=== PATIENT | female | born 1995 | race Caucasian/White ===

== ENCOUNTER 2018-05-08 11:07 | Day surgery (SDC) ==
[2018-05-08 12:14] LABS: #Basophils 0.1 thou/uL (0.0-0.2); #Lymphocytes 1.6 thou/uL (1.20-3.40); #Monocytes 0.6 thou/uL (0.11-0.59); #Neutrophils 7.1 thou/uL (1.40-6.50); %Basophils 0.8 % (0.0-1.0); %Eosinophils 0.4 % (0.0-10.0); %Lymphocytes 17.2 % (21.0-51.0); %Monocytes 6.8 % (0.0-10.0); %Neutrophils 74.8 % (42.0-75.0); Hemoglobin 11.9 g/dL (12.0-16.0); Mean Corpuscular HGB CONC 34.2 g/dL (32.0-36.0); Mean Corpuscular Hemoglobin 29.7 pg (27.0-31.0); Mean Corpuscular Volume 86.8 fL (78.0-98.0); Mean Platelet Volume 8.6 fL (7.4-10.4); Platelet Count 367 thou/uL (130-400); RBC Distribution Width 11.5 % (11.5-14.5); White Blood Cell (WBC) Count 9.5 thou/uL (4.8-10.8)
[2018-05-08 12:35] LABS: Creatinine, Urine 27.37 mg/dL (47-110); Protein, Urine Random Quant Less than 10 mg/dL (1-14)
[2018-05-08 13:30] VITALS: BP 134/92; TEMP 98.1; BMI 26.9
--- NOTE | 2018-05-08 14:23 | ULT ---
BIOPHYSICAL PROFILE: 05/08/2018 PROVIDED CLINICAL HISTORY: induced hypertension. FINDINGS: TONE: 2/2 BREATHIN/2 MOVEMENT: 2/2 AMNIOTIC FLUID: 2/2 TOTAL: 04/04 Single live intrauterine gestation documented in a vertex presentation with a heart rate of 132 beats per minute. Amniotic fluid index is calculated at 12.6. IMPRESSION: Normal biophysical profile. POS: [facility]
== END 2018-05-08 14:07 | disposition home health service (06) ==
LOC: L&D/OP 11:07
PROVIDERS: ATTEND Family Medicine
DX: O13.9 Gestational [pregnancy-induced] hypertension without significant proteinuria, unspecified trimester (principal)
CPT/HCPCS: 36415; 59025; 76819; 82570; 84156; 85025; 99284

== ENCOUNTER 2018-05-14 22:00 | Inpatient (IN) | payer OTHER ==
[~2018-05-14 22:00] MED LIST: Bupivacaine 0.25% HCL 30 ML VIAL ONE
[2018-05-14 23:30] VITALS: BMI 26.6
[2018-05-14] MEDS ORDERED: Methylergonovine 0.2 MG/ML VIAL IM PRN (23:31)
[2018-05-14] MEDS ORDERED: Diphenoxylate HCl/Atropine Tablet PO PRN (23:31)
[2018-05-14] MEDS ORDERED: Ibuprofen 800 MG TAB PO PRN (23:31)
[2018-05-14] MEDS ORDERED: HYDROcodone/Acetaminophen 5/325 mg Tablet PO PRN ×2 (23:31)
[2018-05-14] MEDS ORDERED: Misoprostol 200 MCG TAB PR PRN (23:31)
[2018-05-14] MEDS ORDERED: Butorphanol Tartrate 1 MG/ML VIAL SLOW IVP PRN (23:31)
[2018-05-14] MEDS ORDERED: Lidocaine 1% (PF) 30 ML VIAL SC PRN (23:31)
[2018-05-14] MEDS ORDERED: NS / Oxytocin 40 units/1000ml 1,000 ML IV PRN (23:31)
[2018-05-14] MEDS ORDERED: NS w/ Oxytocin 10 units 500 ML IV SCH ×2 (23:31)
[2018-05-14] MEDS ORDERED: Carboprost 250 MCG/ML AMP IM PRN (23:31)
[2018-05-14] MEDS ORDERED: Ondansetron HCl/PF 4 MG/2 ML Vial IVP PRN (23:31)
[2018-05-14] MEDS: Lactated Ringer's 1,000 ML IV SCH (23:45)
[2018-05-14 23:55] LABS: Hemoglobin 12.2 g/dL (12.0-16.0); Mean Corpuscular HGB CONC 35.6 g/dL (32.0-36.0); Mean Corpuscular Hemoglobin 30.6 pg (27.0-31.0); Mean Corpuscular Volume 86.1 fL (78.0-98.0); Platelet Count 388 thou/uL (130-400); RBC Distribution Width 11.6 % (11.5-14.5); Red Blood Cell (RBC) Count 3.98 mill/uL (4.20-5.40); White Blood Cell (WBC) Count 10.5 thou/uL (4.8-10.8)
[2018-05-15] MEDS: Misoprostol 100 MCG TAB VAG SCH ×2 (00:10→23:00)
[2018-05-15 00:34] LABS: Syphilis Antibody Nonreactive (Nonreactive); Syphilis Antibody Index 0.08 S/CO (<1.00 Non-Reactive)
[2018-05-15 00:40] LABS: HBSAg Index 0.14 S/CO (0-0.99); Hep B Surf Ag Non-Reactive S/CO (NonReactive)
[2018-05-15] MEDS: Lactated Ringer's 1,000 ML IV SCH ×2 (07:56→09:57)
[2018-05-15] MEDS ORDERED: Bupivacaine 0.5% 20 ML, fentaNYL Citrate/PF 400 MCG in Sodium Chloride 0.9% 72 ML EPIDURAL SCH (08:45)
[2018-05-15] MEDS ORDERED: DISCONTINUE ALL PREVIOUS NARCOTICS FS SCH (08:45)
[2018-05-15] MEDS ORDERED: ePHEDrine/0.9% NaCl/PF SYRINGE 50 mg/10 ml SLOW IVP PRN ×2 (09:52→10:43)
[2018-05-15] MEDS ORDERED: Acetaminophen 325 MG TAB PO PRN ×2 (09:52→10:43)
[2018-05-15] MEDS ORDERED: Ondansetron HCl/PF 4 MG/2 ML Vial IVP PRN ×3 (09:52→15:13)
[2018-05-15] MEDS ORDERED: Naloxone HCl 0.4 mg/ml Vial IVP PRN ×4 (09:52→10:43)
[2018-05-15] MEDS ORDERED: Lactated Ringer's 500 ML IV PRN ×2 (09:52→10:43)
[2018-05-15] MEDS ORDERED: Promethazine HCl 25 MG/ML VIAL IM PRN ×2 (09:52→10:43)
[2018-05-15] MEDS ORDERED: Eucerin (Mineral Oil/Petrolatum,White) 30 gm Jar TOP PRN ×2 (09:52→10:43)
[2018-05-15] MEDS ORDERED: diphenhydrAMINE 50 MG/ML VIAL IVP PRN ×2 (09:52→10:43)
[2018-05-15] MEDS ORDERED: Communication Order-Pharmacy FS SCH ×2 (10:00→10:45)
[2018-05-15] MEDS ORDERED: fentaNYL Citrate/PF 400 MCG, Bupivacaine 0.5% 20 ML in Sodium Chloride 0.9% 72 ML EPIDURAL SCH (10:00)
[2018-05-15] MEDS: NS / Oxytocin 40 units/1000ml 1,000 ML IV SCH ×2 (13:05→15:40)
[2018-05-15] MEDS ORDERED: Bisacodyl 10 MG SUPP PR PRN (15:13)
[2018-05-15] MEDS ORDERED: Lanolin Ointment 7 GM TUBE TOP PRN (15:13)
[2018-05-15] MEDS ORDERED: cloNIDine 0.1 MG TAB PO PRN (15:13)
[2018-05-15] MEDS ORDERED: diphenhydrAMINE 25 MG CAP PO PRN (15:13)
[2018-05-15] MEDS ORDERED: Preparation H Ointment 28 GM TUBE PR PRN (15:13)
[2018-05-15] MEDS ORDERED: Milk Of Magnesia 30 ML UDCUP PO PRN (15:13)
[2018-05-15] MEDS ORDERED: HYDROcodone/Acetaminophen 5/325 mg Tablet PO PRN (15:13)
[2018-05-15] MEDS ORDERED: Benzocaine/Menthol 20-0.5% 60 ML CAN TOP PRN (15:13)
[2018-05-15] MEDS: HYDROcodone/Acetaminophen 5/325 mg Tablet PO PRN ×2 (16:51→23:11)
[2018-05-15] MEDS: Ferrous Sulfate 325 MG TAB PO SCH (17:25)
[2018-05-15] MEDS: Ibuprofen 800 MG TAB PO SCH ×2 (17:26→20:28)
[2018-05-15] MEDS: Docusate Calcium (SURFAK) 240 MG CAP PO SCH (20:28)
[2018-05-16] MEDS: Ibuprofen 800 MG TAB PO SCH ×3 (05:41→21:22)
[2018-05-16 05:58] LABS: Hemoglobin 10.2 g/dL (12.0-16.0); Mean Corpuscular HGB CONC 33.3 g/dL (32.0-36.0); Mean Corpuscular Hemoglobin 29.4 pg (27.0-31.0); Mean Corpuscular Volume 88.4 fL (78.0-98.0); Mean Platelet Volume 8.7 fL (7.4-10.4); Platelet Count 266 thou/uL (130-400); RBC Distribution Width 11.8 % (11.5-14.5); Red Blood Cell (RBC) Count 3.48 mill/uL (4.20-5.40); White Blood Cell (WBC) Count 13.3 thou/uL (4.8-10.8)
[2018-05-16] MEDS: Prenatal Vitamin 1 TAB PO SCH (08:31)
[2018-05-16] MEDS: Docusate Calcium (SURFAK) 240 MG CAP PO SCH ×2 (08:32→21:22)
[2018-05-16] MEDS: Ferrous Sulfate 325 MG TAB PO SCH ×2 (08:32→16:09)
[2018-05-17] MEDS: Ibuprofen 800 MG TAB PO SCH (05:01)
[2018-05-17] MEDS: Ferrous Sulfate 325 MG TAB PO SCH (09:27)
[2018-05-17] MEDS: Docusate Calcium (SURFAK) 240 MG CAP PO SCH (09:29)
[2018-05-17] MEDS: Prenatal Vitamin 1 TAB PO SCH (09:29)
[2018-05-17 12:10] VITALS: BP 137/91; TEMP 99
== END 2018-05-17 12:30 | disposition home or self-care (01) | DRG 775 ==
LOC: L&D 22:49 → 3SW 05-15 15:52
PROVIDERS: ADMIT Family Medicine; ATTEND Family Medicine
PROC: 10E0XZZ Delivery of Products of Conception, External Approach (ICD-10-PCS; principal; 2018-05-14)
PROC: 0HQ9XZZ Repair Perineum Skin, External Approach (ICD-10-PCS; 2018-05-14)
DX: O13.3 Gestational [pregnancy-induced] hypertension without significant proteinuria, third trimester (principal); Z3A.38 38 weeks gestation of pregnancy; Z37.0 Single live birth; O70.0 First degree perineal laceration during delivery
CPT/HCPCS: 36415; 51702; 85027; 86780; 86850; 86900; 86901; 87340; J0595; J2001; J3010; J3490; J7050; S0020

== ENCOUNTER 2020-05-22 10:47 | Observation (INO) | payer OTHER ==
[2020-05-22 11:42] VITALS: BMI 28.1
[2020-05-22] MEDS ORDERED: Betamet Acet/Betamet Na Ph 30 MG/5 ML VIAL ONE (11:46)
[2020-05-22] MEDS ORDERED: Promethazine HCl 25 MG/ML VIAL IM PRN (12:12)
[2020-05-22] MEDS ORDERED: Acetaminophen 500 MG TAB PO PRN (12:12)
[2020-05-22] MEDS ORDERED: Docusate 100 MG CAP PO PRN (12:12)
[2020-05-22] MEDS ORDERED: Acetaminophen 500 MG TAB PO SCH (12:45)
[2020-05-22 12:58] LABS: Hemoglobin 11.8 g/dL (12.0-16.0); Mean Corpuscular HGB CONC 35.2 g/dL (32.0-36.0); Mean Corpuscular Volume 88.1 fL (78.0-98.0); Mean Platelet Volume 7.9 fL (7.4-10.4); Platelet Count 345 thou/uL (130-400); RBC Distribution Width 11.3 % (11.5-14.5); White Blood Cell (WBC) Count 9.3 thou/uL (4.8-10.8)
[2020-05-22 13:08] LABS: Creatinine, Urine 30.07 mg/dL (47-110); Protein, Urine Random Quant Less than 10 mg/dL (1-14)
[2020-05-22 13:23] LABS: ALT (SGPT) 41 U/L (8-55); AST (SGOT) 31 U/L (5-34); Albumin 3.3 g/dL (3.5-5.0); Alkaline Phosphatase 193 U/L (40-110); Anion Gap 12 mmol/L (10-20); BUN (Urea Nitrogen) 6 mg/dL (7.0-18.7); Bilirubin, Total 0.2 mg/dL (0.2-1.2); Calc. Creatinine Clearance 170 mL/min (70-130); Calcium 8.5 mg/dL (7.8-10.44); Carbon Dioxide 22 mmol/L (22-29); Chloride 105 mmol/L (98-107); Estimated GFR-MDRD Greater than 90; Globulin 3.8 g/dL (2.4-3.5); Glucose 105 mg/dL (70-105); Potassium 3.5 mmol/L (3.5-5.1); Protein, Total 7.1 g/dL (6.0-8.3); Sodium 135 mmol/L (136-145)
--- NOTE | 2020-05-22 14:03 | ULT ---
Exam: Nonstress biophysical profile HISTORY: Hypertension. 32 weeks gestation TECHNIQUE: Nonstress biophysical profile is performed lie: Vertex Placental location: Posterior Shadowing limits evaluation of the cervix as well as the presence or absence of previa heart tones: 143 bpm Amniotic fluid index 10.2 cm Nonstress biophysical profile: tone 2 breathing 2 movements 2 Fluid 2 Total score 8 out of 8 IMPRESSION: Nonstress biophysical score is 8 out of 8
[2020-05-22] MEDS ORDERED: Calcium Carbonate 500 MG ChewTAB PO PRN (22:29)
[2020-05-22] MEDS: Betamet Acet/Betamet Na Ph 30 MG/5 ML VIAL IM SCH (22:33)
--- NOTE | 2020-05-23 07:40 | PDOC.OBAPN ---
[facility] OB PN: Sub - Interval History Hospital Day: 2 Chief Complaint: none Indentification: # 32.5 WGA Interval History: Vitals WNLs since arrival to L&D. s/p betamethasone x1. R OB PN: Obj - Maternal Vital signs: BP: 108/65 Wt: 74 kg [facility] OB PN: Exam - Physical Exam General: NAD, awake, alert and oriented HEENT: normocephalic and atraumatic, grossly normal vision, grossly normal hearing Neck: supple, FROM Heart: RRR, normal S1/S2 General: CTAB, no respiratory distress Abdomen: gravid Musculoskeletal: normal gait and station, FROM in all four extremities Neurological: cranial nerves II through XII intact, sensation to pain,touch and proprioception grossly normal, no focal deficit Psychiatric: intact recent and remote memory, good judgement and insight, normal mood and affect [facility] OB PN: Data - Labs Lab results: Laboratory Results - last 24 hr 05/22/20 05/22/20 05/22/20 12:30 12:37 12:37 WBC 9.3 RBC 3.80 L Hgb 11.8 L Hct 33.5 L MCV 88.1 MCH 31.0 MCHC 35.2 RDW 11.3 L Plt Count 345 MPV 7.9 Sodium 135 L Potassium 3.5 Chloride 105 Carbon Dioxide 22 Anion Gap 12 BUN 6 L Creatinine 0.60 Estimated GFR (MDRD) Greater than 90 Glucose 105 Calcium 8.5 Total Bilirubin 0.2 AST 31 ALT 41 Alkaline Phosphatase 193 H Serum Total Protein 7.1 Albumin 3.3 L Globulin 3.8 H Albumin/Globulin Ratio 0.9 L U Random Total Protein Less than 10 Urine Creatinine 30.07 L [facility] OB PN: A/P - Problem List (1) Status: Acute Qualifiers: Weeks of gestation: 32 weeks Qualified Code(s): Z3A.32 - 32 weeks gestation of Disposition: 25YO @ 32.5 WGA who presented to L&D for evaluation for PIH. Concern for PIH: Patient's BPs WNLs since arrival to L&D w/ labwork negative for pre-eclampsia. s/p betamethasone x1. Second shot due @ ~11:56 today. @ 32.5 WGA: Continue routine care. Dispo: Anticipate d/c this afternoon s/p second dose of betamethasone. Discussion: Date/Time: 05/23/20 0740 This H&P was discussed with Dr. Dominguez who agrees with the above documentation and plan. Addendum - Attending - Attending Attestation Date/Time: 05/26/20 0950 I personally evaluated the patient and discussed the management with Dr. Rudd. I agree with the History, Examination, Assessment and Plan documented above with any addition or exceptions noted below.
[2020-05-23 08:56] VITALS: BP 125/84; TEMP 97.8
[2020-05-23] MEDS: Betamet Acet/Betamet Na Ph 30 MG/5 ML VIAL IM SCH (11:58)
--- NOTE | 2020-05-23 12:14 | PDOC.BPN ---
- Brief Progress Note Encounter Date: 05/19/20 Encounter Time: 12:[address] NST reactive. VSSafebrile. OK for DC as planned
--- NOTE | 2020-05-25 08:31 | DIS ---
DATE OF ADMISSION: 05/22/2020 DATE OF DISCHARGE: 05/23/2020 PRINCIPAL PROCEDURES: 1. Administration of corticosteroids for lung maturity. 2. Biophysical profile. In brief, the patient was admitted on 05/22 for [address] administration per Dr. Leblanc. She was admitted with Dr. Kaylen Rudd and Dr. Dominguez on-call. I evaluated the patient when I came on shift on 05/23/2020 when the plan had been made to send her home after her second Celestone. Second Celestone was given. I reviewed her blood pressures at 12:15 on the 23 of May and finding them to be normal, along with a reactive nonstress test, I continued the plan to send her home. Her EGA was roughly 32 weeks and 5 days. She is to resume care with Dr. Leblanc. Job ID: [id number]
== END 2020-05-23 12:15 | disposition home or self-care (01) ==
LOC: L&D/OP 10:47 → L&D 11:00
PROVIDERS: ADMIT Family Medicine; ATTEND Family Medicine
DX: O13.3 Gestational [pregnancy-induced] hypertension without significant proteinuria, third trimester (principal); Z3A.32 32 weeks gestation of pregnancy; Z79.82 Long term (current) use of aspirin
CPT/HCPCS: 36415; 59025; 76819; 80053; 82570; 84156; 85027; 96372; 99285; G0378; J0702

== ENCOUNTER 2020-06-19 10:26 | Outpatient (CLI) | payer OTHER ==
[2020-06-20 12:00] LABS: SARS-CoV-2 MS2 Positive; SARS-CoV-2 N Gene Negative; SARS-CoV-2 S Gene Negative; SARS-CoV-2 by NAA Not Detected (NotDetected); SARS-CoV-2 orf1ab Negative
== END 2020-06-19 10:27 | disposition home or self-care (01) ==
LOC: LABBT 10:26
PROVIDERS: ATTEND Family Medicine
DX: Z20.828 Contact with and (suspected) exposure to other viral communicable diseases (principal)
CPT/HCPCS: 87635; U0003

== ENCOUNTER 2020-06-22 18:00 | Inpatient (IN) | payer OTHER ==
[~2020-06-22 18:00] MED LIST changes: -Bupivacaine 0.25% HCL 30 ML VIAL ONE; +Bupivacaine/Epinephrine 0.25% 30 ML VIAL ONE
[2020-06-22] MEDS ORDERED: Ibuprofen 800 MG TAB PO PRN (20:35)
[2020-06-22] MEDS ORDERED: NS / Oxytocin 40 units/1000ml 1,000 ML IV PRN (20:35)
[2020-06-22] MEDS ORDERED: HYDROcodone/Acetaminophen 5/325 mg Tablet PO PRN (20:35)
[2020-06-22] MEDS ORDERED: NS w/ Oxytocin 10 units 500 ML IV SCH (20:35)
[2020-06-22] MEDS ORDERED: hydrALAZINE 20 MG/ML VIAL SLOW IVP PRN (20:35)
[2020-06-22] MEDS ORDERED: Ondansetron PF 4 MG/2 ML Vial IVP PRN (20:35)
[2020-06-22] MEDS ORDERED: Promethazine HCl 25 MG/ML VIAL IM PRN (20:35)
[2020-06-22] MEDS ORDERED: Diphenoxylate HCl/Atropine Tablet PO PRN (20:35)
[2020-06-22] MEDS ORDERED: Misoprostol 200 MCG TAB PR PRN (20:35)
[2020-06-22] MEDS ORDERED: Lidocaine 1% (PF) 30 ML VIAL SC PRN (20:35)
[2020-06-22] MEDS ORDERED: Butorphanol Tartrate 1 MG/ML VIAL SLOW IVP PRN (20:35)
[2020-06-22] MEDS ORDERED: Carboprost 250 MCG/ML AMP IM PRN (20:35)
[2020-06-22 20:39] VITALS: BMI 29.2
[2020-06-22] MEDS: Lactated Ringer's 1,000 ML IV SCH (21:31)
[2020-06-22] MEDS: Misoprostol 100 MCG TAB PO SCH (21:32)
[2020-06-22 21:42] LABS: Mean Corpuscular HGB CONC 34.4 g/dL (32.0-36.0); Mean Corpuscular Volume 87.1 fL (78.0-98.0); Mean Platelet Volume 8.2 fL (7.4-10.4); Platelet Count 353 thou/uL (130-400); RBC Distribution Width 12.3 % (11.5-14.5); White Blood Cell (WBC) Count 11.8 thou/uL (4.8-10.8)
[2020-06-22 22:20] LABS: Syphilis Antibody Nonreactive (Nonreactive); Syphilis Antibody Index 0.07 S/CO (<1.00 Non-Reactive)
[2020-06-22 23:38] LABS: HBSAg Index 0.13 S/CO (0-0.99); Hep B Surf Ag Non-Reactive S/CO (NonReactive)
[2020-06-23] MEDS ORDERED: Fentanyl 4 mcg/Bup 0.1% Cadd 100 ML ONE ×2 (00:45→08:26)
[2020-06-23] MEDS: Lactated Ringer's 1,000 ML IV SCH ×3 (00:52→22:54)
[2020-06-23] MEDS ORDERED: Promethazine HCl 25 MG/ML VIAL IM PRN (01:19)
[2020-06-23] MEDS ORDERED: Acetaminophen 325 MG TAB PO PRN (01:19)
[2020-06-23] MEDS ORDERED: Naloxone HCl 0.4 mg/ml Vial IVP PRN ×2 (01:19)
[2020-06-23] MEDS ORDERED: Lactated Ringer's 500 ML IV PRN (01:19)
[2020-06-23] MEDS ORDERED: diphenhydrAMINE 50 MG/ML VIAL IVP PRN (01:19)
[2020-06-23] MEDS ORDERED: EPHEDRINE 25 MG/5 ML SYRINGE SLOW IVP PRN (01:19)
[2020-06-23] MEDS ORDERED: Ondansetron PF 4 MG/2 ML Vial IVP PRN ×2 (01:19→14:03)
[2020-06-23] MEDS ORDERED: Communication Order-Pharmacy FS SCH (01:30)
[2020-06-23] MEDS ORDERED: Fentanyl 4 mcg/Bupivacaine 0.1% Cassette 100 ML EPIDURAL SCH (01:30)
[2020-06-23] MEDS ORDERED: Ondansetron PF 4 MG/2 ML Vial ONE (12:37)
[2020-06-23] MEDS ORDERED: NS / Oxytocin 40 units/1000ml 1,000 ML ONE (13:04)
[2020-06-23] MEDS ORDERED: diphenhydrAMINE 25 MG CAP PO PRN (14:03)
[2020-06-23] MEDS ORDERED: Bisacodyl 10 MG SUPP PR PRN (14:03)
[2020-06-23] MEDS ORDERED: cloNIDine 0.1 MG TAB PO PRN (14:03)
[2020-06-23] MEDS ORDERED: NS / Oxytocin 40 units/1000ml 1,000 ML IV SCH (14:03)
[2020-06-23] MEDS ORDERED: Benzocaine-Menthol 82.5 ML CAN TOP PRN (14:03)
[2020-06-23] MEDS ORDERED: hydrALAZINE 20 MG/ML VIAL SLOW IVP PRN (14:03)
[2020-06-23] MEDS ORDERED: Adacel (T-DAP) 0.5 ML SYRINGE IM ONE (14:03)
[2020-06-23] MEDS ORDERED: Milk Of Magnesia 30 ML UDCUP PO PRN (14:03)
[2020-06-23] MEDS ORDERED: HYDROcodone/Acetaminophen 5/325 mg Tablet PO PRN ×2 (14:03)
[2020-06-23] MEDS: Ibuprofen 800 MG TAB PO SCH ×2 (15:57→22:51)
[2020-06-23] MEDS: Ferrous Sulfate 325 MG TAB PO SCH (16:28)
[2020-06-23] MEDS: NS w/ Oxytocin 10 units 500 ML IV SCH ×2 (19:19→22:54)
[2020-06-23] MEDS: Misoprostol 100 MCG TAB PO SCH ×2 (19:19→19:20)
[2020-06-23] MEDS: Docusate Calcium (SURFAK) 240 MG CAP PO SCH (19:30)
[2020-06-24] MEDS: Lactated Ringer's 1,000 ML IV SCH ×3 (05:41→16:22)
[2020-06-24] MEDS: Ibuprofen 800 MG TAB PO SCH ×3 (06:14→21:20)
[2020-06-24] MEDS: Ferrous Sulfate 325 MG TAB PO SCH ×2 (07:21→16:21)
[2020-06-24] MEDS: Prenatal Vitamin 1 TAB PO SCH (08:13)
[2020-06-24] MEDS: Docusate Calcium (SURFAK) 240 MG CAP PO SCH ×2 (08:13→21:21)
[2020-06-24] MEDS: NS w/ Oxytocin 10 units 500 ML IV SCH (16:22)
[2020-06-25] MEDS: Ibuprofen 800 MG TAB PO SCH ×2 (06:18→14:08)
[2020-06-25] MEDS: Lactated Ringer's 1,000 ML IV SCH ×2 (06:20→14:08)
[2020-06-25 08:11] VITALS: BP 125/85; TEMP 98.7
[2020-06-25] MEDS: Docusate Calcium (SURFAK) 240 MG CAP PO SCH (09:46)
[2020-06-25] MEDS: Ferrous Sulfate 325 MG TAB PO SCH ×3 (09:46→17:50)
[2020-06-25] MEDS: Prenatal Vitamin 1 TAB PO SCH (09:46)
== END 2020-06-25 19:11 | disposition home or self-care (01) | DRG 807 ==
LOC: L&D 20:09 → UNDODISIN 06-23 11:23 → 3SE 06-23 14:58
PROVIDERS: ADMIT Family Medicine; ATTEND Family Medicine
PROC: 10E0XZZ Delivery of Products of Conception, External Approach (ICD-10-PCS; principal; 2020-06-23)
PROC: 10907ZC Drainage of Amniotic Fluid, Therapeutic from Products of Conception, Via Natural or Artificial Opening (ICD-10-PCS; 2020-06-23)
PROC: 3E0P7VZ Introduction of Hormone into Female Reproductive, Via Natural or Artificial Opening (ICD-10-PCS; 2020-06-23)
PROC: 3E033VJ Introduction of Other Hormone into Peripheral Vein, Percutaneous Approach (ICD-10-PCS; 2020-06-23)
DX: O14.94 Unspecified pre-eclampsia, complicating childbirth (principal); Z37.0 Single live birth; Z20.828 Contact with and (suspected) exposure to other viral communicable diseases; O69.1XX0 Labor and delivery complicated by cord around neck, with compression, not applicable or unspecified; Z3A.37 37 weeks gestation of pregnancy
CPT/HCPCS: 36415; 51702; 85027; 86780; 86850; 86900; 86901; 87340; J2405; J2590

== ENCOUNTER 2021-07-05 13:26 | Outpatient (CLI) | payer OTHER ==
[2021-07-05 14:34] LABS: #Basophils 0.1 10x3/uL (0.0-0.2); #Eosinphils 0.2 10x3/uL (0.0-0.5); #Monocytes 0.9 10x3/uL (0.0-1.1); #Neutrophils 5.4 10x3/uL (1.5-8.4); %Basophils 0.6 % (0.0-2.0); %Eosinophils 2.4 % (0.0-6.0); %Lymphocytes 22.5 % (18.0-47.0); %Monocytes 10.4 % (0.0-10.0); %Neutrophils 63.7 % (40.0-75.0); Hemoglobin 12.5 g/dL (12.0-15.5); Mean Corpuscular HGB CONC 33.3 g/dL (32.0-36.0); Mean Platelet Volume 9.2 fl (7.4-10.4); Platelet Count 397 10x3/uL (150-450); RBC Distribution Width 13.5 % (11.5-14.5); Red Blood Cell (RBC) Count 4.31 10x6/uL (3.90-5.03); White Blood Cell (WBC) Count 8.4 10x3/uL (3.5-10.5)
[2021-07-05 15:30] LABS: ALT (SGPT) 42 U/L (8-55); AST (SGOT) 28 U/L (5-34); Albumin 4.2 g/dL (3.5-5.0); Alkaline Phosphatase 121 U/L (40-110); Anion Gap 11 mmol/L (10-20); BUN (Urea Nitrogen) 10 mg/dL (7.0-18.7); Bilirubin, Direct 0.1 mg/dL (0.1-0.3); Bilirubin, Total 0.4 mg/dL (0.2-1.2); Calc. Creatinine Clearance 0 mL/min (70-130); Calcium 9.4 mg/dL (7.8-10.44); Carbon Dioxide 28 mmol/L (22-29); Chloride 102 mmol/L (98-107); Glucose 80 mg/dL (70-105); Potassium 4.3 mmol/L (3.5-5.1); Protein, Total 7.7 g/dL (6.0-8.3); Sodium 137 mmol/L (136-145)
[2021-07-05 15:41] LABS: BHCG - Serum Negative (NEGATIVE); Pregs Control Background? CLEAR/WHITE (CLR/WHITE); Pregs Control Bar Appear? YES (CONTROL BAR)
[2021-07-05 20:29] LABS: SARS-CoV-2 PCR by NAA Not Detected (NotDetected)
== END 2021-07-05 13:27 | disposition home or self-care (01) ==
LOC: LABBT 13:26
PROVIDERS: ATTEND Surgery
DX: Z01.812 Encounter for preprocedural laboratory examination (principal); K80.20 Calculus of gallbladder without cholecystitis without obstruction; Z20.822 Contact with and (suspected) exposure to COVID-19
CPT/HCPCS: 80048; 80076; 84703; 85025; U0003; U0005

== ENCOUNTER 2021-07-08 06:45 | Day surgery (SDC) | payer OTHER ==
[2021-07-06 12:51] VITALS: BMI 26.9
[2021-07-08] MEDS ORDERED: Fentanyl 100 MCG/2 ML VIAL ONE (07:05)
[2021-07-08] MEDS ORDERED: Bupivacaine 0.25% HCL 30 ML VIAL ONE (08:37)
[2021-07-08] MEDS ORDERED: Lidocaine 1% w/Epinephrine 1:100K 20 ML VIAL ONE (08:37)
[2021-07-08] MEDS ORDERED: Iothalamate Meglumine 60% 50 ML VIAL FS ONE (08:37)
[2021-07-08] MEDS ORDERED: Scopolamine 1.5 mg/72 hour Patch ONE (09:02)
[2021-07-08] MEDS ORDERED: Midazolam HCl 2 mg/2 ml Vial ONE (09:02)
[2021-07-08] MEDS ORDERED: Rocuronium Bromide 10 MG/ML (10ML VIAL) ONE (09:12)
[2021-07-08] MEDS ORDERED: Ondansetron PF 4 MG/2 ML Vial ONE (09:12)
[2021-07-08] MEDS ORDERED: PROPOFOL 200 MG/20 ML VIAL ONE (09:12)
[2021-07-08] MEDS ORDERED: Dexamethasone 20 MG/5 ML VIAL ONE (09:12)
[2021-07-08] MEDS ORDERED: Lidocaine 1% PF 5 ML VIAL ONE (09:12)
[2021-07-08] MEDS ORDERED: Ketorolac Tromethamine 30 MG/ML VIAL ONE (09:12)
[2021-07-08] MEDS ORDERED: ePHEDrine 50 MG/ML VIAL ONE (09:12)
[2021-07-08] MEDS ORDERED: Glycopyrrolate 0.2 MG/ML 5 ML SYRINGE ONE (09:12)
[2021-07-08] MEDS ORDERED: SUGAMMADEX SODIUM 200 MG/2 ML VIAL ONE (09:51)
[2021-07-08] MEDS ORDERED: HYDROcodone/Acetaminophen 5/325 mg Tablet ONE (11:09)
== END 2021-07-08 12:20 | disposition home or self-care (01) ==
LOC: SDC 06:45
PROVIDERS: ATTEND Surgery
PROC: BF101ZZ Fluoroscopy of Bile Ducts using Low Osmolar Contrast (ICD-10-PCS; principal; 2021-07-08)
PROC: 0FT44ZZ Resection of Gallbladder, Percutaneous Endoscopic Approach (ICD-10-PCS; principal; 2021-07-08)
DX: K80.10 Calculus of gallbladder with chronic cholecystitis without obstruction (principal); I10 Essential (primary) hypertension; Z79.899 Other long term (current) drug therapy
CPT/HCPCS: 47532; 88304; J0690; J1100; J1885; J2250; J2405; J2704; J3010; J3490; Q9961-U8; S0020